=== PATIENT | male | born 1985 | race African-American/Black ===

== ENCOUNTER 2017-07-15 13:28 | Emergency (ER) | payer OTHER ==
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
== END 2017-07-15 15:30 ==
LOC: ER 13:28
DX: Z04.8 Encounter for examination and observation for other specified reasons (principal); T18.5XXA Foreign body in anus and rectum, initial encounter; X58.XXXA Exposure to other specified factors, initial encounter; F17.200 Nicotine dependence, unspecified, uncomplicated
CPT/HCPCS: 99284

== ENCOUNTER 2017-08-21 02:27 | Emergency (ER) | payer SELFPAY ==
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
[2017-08-21 05:13] VITALS: BP 124/80
== END 2017-08-21 05:12 | disposition home or self-care (01) ==
LOC: ER 02:27
PROC: 089RXZZ Drainage of Left Lower Eyelid, External Approach (ICD-10-PCS; principal; 2017-08-21)
DX: H00.035 Abscess of left lower eyelid (principal)
CPT/HCPCS: 87070; 87077; 87186; 87205; 99283